=== PATIENT | male | born 1975 | race Caucasian/White ===

== ENCOUNTER → 2017-01-28 | Outpatient (CLI) | payer OTHER, MEDICAID ==
[~2017-01-28] MED LIST: ALTACE 1.25MG1.25 MG PO; AMBIEN 10MG10 MG PO; ASPIRIN E.C. 8181 MG PO; BENADRYL50 MG PO; COLACE 100100 MG/CAP PO; DAZIDOX10 MG PO; DIPHENHYDRAM50 MG/M1 PO; HEADACHE RELIE1 EACH PO; LIPITOR 40MG TA40 MG PO; LOPRESSOR 225 MG/TAB PO; MAGCITRATE PO; NATURAL FIBER PO; NITROSTAT0.4 MG/TAB SL; OXY IR5 MG PO; OXYCONTIN30 MG PO; PLAVIX 75MG TAB75 MG PO; ZANTAC 150MG T150 MG PO; ZESTORETIC 12.51 TAB PO
== END ==
LOC: MHCPAIN 08:23
DX: G89.29 Other chronic pain (principal); M47.27 Other spondylosis with radiculopathy, lumbosacral region; F17.210 Nicotine dependence, cigarettes, uncomplicated; Z79.02 Long term (current) use of antithrombotics/antiplatelets
CPT/HCPCS: G0463

== ENCOUNTER 2019-07-14 10:42 | Emergency (ER) | payer OTHER ==
[~2019-07-14] VITALS: Ht 167.6 cm; Wt 75.0 kg
[2019-07-14 11:07] LABS: HEMATOCRIT 41.4 % (42.0-52.0); HEMOGLOBIN 13.9 g/dl (13.5-18.0); MEAN CELL VOLUME 89 fl (80.0-100.0); MEAN CORPUSCULAR HEMOGLOBIN 30 pg (27.0-31.0); MEAN CORPUSCULAR HGB CONC 34 g/dl (33.0-37.0); MEAN PLATELET VOLUME 9.5 fl (7.4-10.4); PLATELET COUNT 226 K/mm3 (130-400); RED BLOOD COUNT 4.63 M/mm3 (4.20-5.60); REDCELL DISTRIBUTION WIDTH-CV 13.8 % (11.5-14.5)
[2019-07-14 11:13] LABS: PROTHROMBIN TIME 11.6 SECONDS (9.7-12.8)
[2019-07-14 11:16] LABS: PARTIAL THROMBOPLASTIN TIME 30.8 SECONDS (26.0-37.0)
[2019-07-14 11:21] LABS: ALANINE AMINOTRANSFERASE 16 U/L (21-72); ALBUMIN 3.9 gm/dL (3.5-5.0); ALKALINE PHOSPHATASE 58 U/L (50-136); ANION GAP 9 mmol/L (7-16); AST,SGOT 33 U/L (15-37); BILIRUBIN,TOTAL 0.5 mg/dL (0.0-1.0); BLOOD UREA NITROGEN 17 mg/dL (9-20); CALCIUM 8.7 mg/dL (8.4-10.2); CARBON DIOXIDE 24 mmol/L (22-30); CHLORIDE 105 mmol/L (98-107); CREATININE, serum 0.82 (0.66-1.25); GLUCOSE 125 mg/dL (74-106); SODIUM 139 mmol/L (137-145); TOTAL PROTEIN 6.5 gm/dL (6.4-8.2)
[2019-07-14 11:35] LABS: EOSINOPHIL 3 % (0-4); LYMPHOCYTE 6 % (20.0-51.0); NEUTROPHILS 91 % (42.0-75.2); PLATELET ESTIMATE NORMAL (NORMAL)
[2019-07-14 11:40] LABS: TROPONIN-I < 0.012 ng/mL (0.000-0.035)
[2019-07-14 14:56] VITALS: BP 113/63; PULSE 78; TEMP 98.6
== END 2019-07-14 15:07 | disposition home or self-care (01) ==
LOC: COL.ER 10:51
PROVIDERS: Family Medicine
DX: K52.9 Noninfective gastroenteritis and colitis, unspecified (principal); R11.0 Nausea; I10 Essential (primary) hypertension; Z95.1 Presence of aortocoronary bypass graft; Z95.9 Presence of cardiac and vascular implant and graft, unspecified; Z79.82 Long term (current) use of aspirin; Z79.02 Long term (current) use of antithrombotics/antiplatelets
CPT/HCPCS: J2405; J2550; J7030; Q9967